=== PATIENT | male | born 1950 | race Caucasian/White ===

== ENCOUNTER 2017-08-18 14:10 | Emergency (ER) | payer MEDICARE ==
[~2017-08-18] VITALS: Ht 175.3 cm; Wt 101.4 kg
[2017-08-18 14:14] VITALS: BP 170/95; PULSE 90; RESP 16; TEMP 97.5; O2SAT 98
[2017-08-18] MEDS ORDERED: METF500T PO (14:29)
[2017-08-18] MEDS ORDERED: ASPI-183 PO (14:29)
[2017-08-18] MEDS ORDERED: LATA0.002 EACH EYE (14:29)
[2017-08-18] MEDS ORDERED: LISI10TA3 PO (14:29)
[2017-08-18] MEDS ORDERED: TAMS0.4C4 (14:29)
[2017-08-18] MEDS ORDERED: DORZ2SOL15 EACH EYE (14:29)
[2017-08-18] MEDS ORDERED: PENI500T PO (14:32)
[2017-08-18] MEDS ORDERED: PERI0.126 SWISH-SPIT (14:32)
--- NOTE | 2017-08-18 14:33 | PD ---
HPI Chief Complaint: Oral / Dental Pain or Problem Time Seen by Provider: 14:18 Travel History International Travel<30 days: No Contact w/Intl Traveler<30days: No Traveled to known affect area: No History of Present Illness HPI The patient is a 67-year-old male who presents emergency department for dental pain. The patient complains of pain located left lower aspect of the jaw, most posterior tooth which is sensitive to mastication a mild sensitivity to cold, no sensitivity the heat. He complains of pain over the affected area and is worried about getting an infection as he recently had a knee replacement performed by Dr. Cerrato in [place], at the [facility]. The patient denies any fever, chills, or sweats. He denies any significant swelling of the affected area. PFSH Past Medical History Hx Anticoagulant Therapy: Yes (asa 325mg) Cardiovascular Problems: Yes Diabetes: Yes (type 2) Patient Takes Glucophage: Yes Hypertension: Yes Past Surgical History Narrative Surgical Left knee replacement Social History Alcohol Use: No Tobacco Use: No Substance Use: No Review of Systems Except as stated in HPI: all other systems reviewed are Neg General / Constitutional: No: Fever HENT: Positive: Dental Difficulties, No: Neck Pain Gastrointestinal: No: Nausea, Vomiting Musculoskeletal: Positive: Other (recent left knee replacement) Physical Exam Narrative GENERAL: Awake, alert, pleasant 67-year-old male who appears his stated age and is in no acute respiratory distress. SKIN: Focused skin assessment warm/dry. HEAD: Atraumatic. Normocephalic. EYES: No injection or drainage. ENT: No nasal bleeding or discharge. Mucous membranes pink and moist. Inspection of dentition reveals the patient's left posterior molar has a slightly cavernous area on the posterior lateral side. No significant gingival swelling or palpable abscess. NECK: Trachea midline. No JVD. MUSCULOSKELETAL: Scar noted over the anterior aspect the left knee. NEUROLOGICAL: Awake and alert. No obvious cranial nerve deficits. Motor grossly within normal limits. Normal speech. PSYCHIATRIC: Appropriate mood and affect; insight and judgment normal. Data Data Last Documented VS Vital Signs Date Time Temp Pulse Resp B/P (MAP) Pulse Ox O2 Delivery O2 Flow Rate FiO2 08/18/17 14:14 97.5 90 16 170/95 (120) 98 MDM Medical Decision Making Medical Screen Exam Complete: Yes Emergency Medical Condition: Yes Medical Record Reviewed: Yes Differential Diagnosis Differential diagnosis includes odontalgia, dental abscess, ANUG, cavities. Narrative Course The patient will be placed on Pen-Vee K 4 times a day for 10 days. He will then be placed on Peridex swish and spit until he can follow-up with his dentist. Return if symptoms worsen or progress. Diagnosis Primary Impression: Odontalgia Patient Instructions: General Instructions Additional Instructions: Medications as directed. Follow-up with your dentist. Return if symptoms worsen or progress. Med/Other Pt SpecificInfo: Prescription(s) given Scripts Chlorhexidine Gluconate (Mouth) Liq (Peridex Liq) 0.12% Soln 15 ML SWISH-SPIT BID, #473 ML 0 Refills Prov: Juan Medina MD 08/18/17 Penicillin V Potassium (Penicillin V Potassium) 500 Mg Tab 500 MG PO Q6H for Infection for 10 Days, #40 TAB 0 Refills Prov: Juan Medina MD 08/18/17 Disposition: 01 DISCHARGE HOME Condition: Stable Juan Medina MD Aug 18, 2017 14:33
== END 2017-08-18 14:49 | disposition home or self-care (01) ==
LOC: PHEFT 14:10
DX: K08.89 Other specified disorders of teeth and supporting structures (principal); E11.9 Type 2 diabetes mellitus without complications; I10 Essential (primary) hypertension
CPT/HCPCS: 99283

== ENCOUNTER 2017-08-20 02:55 | Emergency (ER) | payer MEDICARE ==
[~2017-08-20] VITALS: Ht 175.3 cm; Wt 100.0 kg
[~2017-08-20 02:55] MED LIST: ASPI-183 PO; DORZ2SOL15 EACH EYE; LATA0.002 EACH EYE; LISI10TA3 PO; METF500T PO; PENI500T PO; PERI0.126 SWISH-SPIT; TAMS0.4C4
[2017-08-20 03:00] VITALS: BP 166/91; PULSE 90; RESP 18; TEMP 97.8; O2SAT 98
[2017-08-20] MEDS ORDERED: IBUP-232 PO (03:21)
[2017-08-20] MEDS ORDERED: LIDOCAINE HCL 1% 50 ML VIAL IM ONE (04:00)
[2017-08-20] MEDS ORDERED: oxyCODONE/ACETAMINOPHEN 10 MG/325 MG TAB PO ONE (04:00)
[2017-08-20] MEDS ORDERED: PERC10TA27 PO (04:10)
--- NOTE | 2017-08-20 04:11 | PD ---
HPI Chief Complaint: Oral / Dental Pain or Problem Time Seen by Provider: 03:51 Travel History International Travel<30 days: No Contact w/Intl Traveler<30days: No Traveled to known affect area: No History of Present Illness HPI The patient is a 67-year-old male that had a tooth infection and was seen on Sunday for this, 2 days ago. He was given Motrin and penicillin. He has been taking the medications correctly. He complains of increased pain and swelling in the area and wants something stronger for pain. The pain as a tightness, throbbing, pressure sensation of 8/10. His pain is in tooth #13. He has not had any fever. PFSH Past Medical History Hx Anticoagulant Therapy: Yes (asa 325mg) Cardiovascular Problems: Yes Diabetes: Yes (metformin) Patient Takes Glucophage: Yes Hypertension: Yes Social History Alcohol Use: No Tobacco Use: No Substance Use: No Allergies-Medications (Allergen,Severity, Reaction): Coded Allergies: No Known Allergies (Verified Allergy, Unknown, 08/20/17) Reported Meds & Prescriptions Reported Meds & Active Scripts Active Peridex Liq (Chlorhexidine Gluconate (Mouth) Liq) 0.12% Soln 15 Ml SWISH-SPIT BID Penicillin V Potassium 500 Mg Tab 500 Mg PO Q6H 10 Days Reported Ibuprofen 600 Mg Tab 600 Mg PO Q6H PRN Aspirin 325 Mg Tab 325 Mg PO DAILY Tamsulosin (Tamsulosin HCl) 0.4 Mg Cap 0.4 Mg HS Metformin (Metformin HCl) 500 Mg Tab 500 Mg PO DAILY With a meal Lisinopril 10 Mg Tab 10 Mg PO DAILY Dorzolamide-Timolol Opth Drops 22.3-6.8 Mg/Ml Soln 1 Drop EACH EYE BID Latanoprost Opth Drops (Latanoprost) 0.005% Drops 1 Drop EACH EYE HS Refrigerate until opened. Review of Systems Except as stated in HPI: all other systems reviewed are Neg Physical Exam Narrative GENERAL: Well-nourished, well-developed patient in moderate apparent distress with his dental discomfort. His vital signs show blood pressure 166/91 but otherwise normal. SKIN: Focused skin assessment warm/dry. HEAD: Normocephalic. EYES: No scleral icterus. No injection or drainage. NECK: Supple, trachea midline. No JVD or lymphadenopathy. CARDIOVASCULAR: Regular rate and rhythm without murmurs, gallops, or rubs. RESPIRATORY: Breath sounds equal bilaterally. No accessory muscle use. GASTROINTESTINAL: Abdomen soft, non-tender, nondistended. MUSCULOSKELETAL: No cyanosis, or edema. The patient has had recent knee surgery and still has the sutures in on his left knee. BACK: Nontender without obvious deformity. No CVA tenderness. DENTAL: No loose or chipped teeth. No malocclusion. There is exquisite tenderness around tooth #13. No drainable abscess is seen. He does have some facial swelling near the tooth. Data Data Last Documented VS Vital Signs Date Time Temp Pulse Resp B/P (MAP) Pulse Ox O2 Delivery O2 Flow Rate FiO2 08/20/17 03:00 97.8 90 18 166/91 (116) 98 Orders Orders Lidocaine 1% Inj (50 Ml) (Xylocaine 1% I (08/20/17 04:00) Ceftriaxone Inj (Rocephin Inj) (08/20/17 04:00) Oxycodone-Acetamin 10-325 Mg (Percocet 1 (08/20/17 04:00) MDM Medical Decision Making Medical Screen Exam Complete: Yes Emergency Medical Condition: Yes Medical Record Reviewed: Yes Differential Diagnosis Dental infection, dental abscess, drainable abscess, cellulitis, buccal abscess , gingivitis Narrative Course The patient has a dental infection. His pain is too much for him to tolerate. He well Be given Percocet 10 and Rocephin 1 g IM. He is given a prescription for Percocet 10. Diagnosis Primary Impression: Dental infection Additional Instructions: As we discussed, do not drink alcohol or drive on the Percocet. Follow-up with a dentist as soon as possible, I know you already tried to call a dentist. Med/Other Pt SpecificInfo: Prescription(s) given Scripts Oxycodone-Acetaminophen (Percocet) 10-325 mg Tab 1 TAB PO Q4H Y for PAIN, #30 TAB 0 Refills Prov: Randell Le MD 08/20/17 Disposition: 01 DISCHARGE HOME Condition: Stable Randell Le MD Aug 20, 2017 04:11
== END 2017-08-20 04:39 | disposition home or self-care (01) ==
LOC: PHED 02:55
DX: K04.7 Periapical abscess without sinus (principal); I10 Essential (primary) hypertension; E11.9 Type 2 diabetes mellitus without complications; Z79.82 Long term (current) use of aspirin; Z79.84 Long term (current) use of oral hypoglycemic drugs
CPT/HCPCS: 96372; 99283; J0696